=== PATIENT | female | born 1975 | race Caucasian/White ===

== ENCOUNTER 2019-05-05 18:49 | Emergency (ER) | payer BC ==
[2019-05-05 19:25] VITALS: BP 138/74
--- NOTE | 2019-05-05 19:28 | UC ---
Respiratory Complaint HPI - HPI Summary HPI Summary: 43 yo female with 5-7 day hx of cough/dyspnea/and plueritic chest pain no fever hx multiple DVTs has a PE about 15 yrs ago - History of Current Complaint Chief Complaint: UCGeneralIllness Stated Complaint: SOB/PAIN IN LUNGS Time Seen by Provider: 05/05/19 19:09 Hx Obtained From: Patient Hx Last Menstrual Period: 05/21/16 Onset/Duration: Sudden Onset, Lasting Days Timing: Constant Severity Initially: Mild Severity Currently: Moderate Pain Intensity: 5 Pain Scale Used: 0-10 Numeric Character: Cough: Nonproductive Aggravating Factors: Exertion Alleviating Factors: Nothing Associated Signs And Symptoms: Positive: Dyspnea, Pleuritic Chest Pain, Calf Pain - bilat (but has chronic pain "everywere". Negative: Fever, Chills, Wheezing, Hemoptysis, Dizziness, Calf Swelling, Edema, URI, Nasal Congestion, Hoarseness, Sinus Discomfort - Risk Factors Pulmonary Embolism Risk Factors: DVT, Previous PE - Allergies/Home Medications Allergies/Adverse Reactions: Allergies Allergy/AdvReac Type Severity Reaction Status Date / Time No Known Allergies Allergy Verified 05/05/19 19:13 Home Medications: Home Medications DULoxetine DR CAP* [Cymbalta CAP*] 60 mg PO DAILY 05/05/19 [History Confirmed ] Methadone HCl 10 mg PO TID 05/05/19 [History Confirmed 05/05/19] Methadone TAB* [Dolophine TAB*] 5 mg PO DAILY 05/05/19 [History Confirmed ] Topiramate 50 mg PO DAILY 05/05/19 [History Confirmed 05/05/19] Topiramate 100 mg PO DAILY 05/05/19 [History Confirmed 05/05/19] Zolpidem TAB* [Ambien TAB*] 10 mg PO BEDTIME 05/05/19 [History Confirmed ] PMH/Surg Hx/FS Hx/Imm Hx Previously Healthy: Yes Respiratory History: Pulmonary Embolism - Surgical History Surgical History: Yes Surgery Procedure, Year, and Place: laminectomy -L5 1995 at [facility]; tarsal tunnel release 2X 11/24/2010; 08/29/2011 of RT foot/ankle; and a deep perineal nerve release on RT proximal lower leg with a 1st & 2nd metatarsal nerve release done 06/2012 at [facility]; Gallbladder removed 01/2005. Neuro stimulator 2015 done at [facility] - Family History Known Family History: Positive: Hypertension, Other - RA in father - Social History Alcohol Use: None Substance Use Type: None Smoking Status (MU): Never Smoked Tobacco Have You Smoked in the Last Year: No Review of Systems All Other Systems Reviewed And Are Negative: Yes Constitutional: Positive: Negative Skin: Positive: Negative Eyes: Positive: Negative ENT: Positive: Negative Respiratory: Positive: Shortness Of Breath, Cough Cardiovascular: Positive: Chest Pain Gastrointestinal: Positive: Negative Genitourinary: Positive: Negative Motor: Positive: Negative Musculoskeletal: Positive: Arthralgia, Myalgia, Other: - chronic daily pain Neurological: Positive: Negative Psychological: Positive: Negative Physical Exam Triage Information Reviewed: Yes Completion Of Physical Exam Limited Due To: Altered Mental Status, Dementia Appearance: Well-Nourished, Other: - BMI 50 Vital Signs: Initial Vital Signs Temp 97.6 F 05/05/19 19:05 Pulse 108 05/05/19 19:05 Resp 20 05/05/19 19:05 BP 138/74 05/05/19 19:05 Pulse Ox 100 05/05/19 19:05 Vital Signs Reviewed: Yes Eyes: Positive: Conjunctiva Clear ENT: Positive: Hearing grossly normal. Negative: Nasal congestion, Nasal drainage, Trismus, Muffled voice, Hoarse voice Dental Exam: Normal Neck: Positive: Supple, Nontender, No Lymphadenopathy Respiratory: Positive: Lungs clear, Normal breath sounds, Other: - increased WOB Cardiovascular: Positive: RRR, No Murmur, Tachycardia Bowel Sounds: Positive: Present Musculoskeletal: Positive: Other: - bilat calf tenderness Neurological: Positive: Alert, Muscle Tone Normal Psychological Exam: Normal Skin Exam: Normal Respiratory Course/Dx - Course Course Of Treatment: D/W [facility] attending to ER for further evaluation they desire to go by POV - Differential Dx/Diagnosis Provider Diagnosis: Pleuritic chest pain Discharge - Sign-Out/Discharge Documenting (check all that apply): Patient Departure All imaging exams completed and their final reports reviewed: No Studies - Discharge Plan Condition: Guarded Disposition: TRANS HIGHER LV OF CARE FAC Referrals: Karyn Salter MD [Primary Care Provider] - Additional Instructions: To [facility] ER for evaluation of you symptoms please go directly there they are expecting you - Billing Disposition and Condition Condition: GUARDED Disposition: Trans Higher Lvl of Care Fac
== END 2019-05-05 19:34 | disposition short-term general hospital (02) ==
LOC: UCCORT 18:49
DX: R07.81 Pleurodynia (principal); Z86.718 Personal history of other venous thrombosis and embolism; Z86.711 Personal history of pulmonary embolism
CPT/HCPCS: 99212; G0463